=== PATIENT | female | born 1995 | race Two or more races ===

== ENCOUNTER 2019-12-03 18:11 | Emergency (ER) | payer SELFPAY ==
[~2019-12-03] VITALS: Ht 160 cm; Wt 53.5 kg
[2019-12-03 18:11] VITALS: BP 120/72
--- NOTE | 2019-12-03 18:24 | NUR ---
ED Nurse Note: Brought in by EMS from retirement for medical clearance; patient c/o vaginal pain
--- NOTE | 2019-12-03 19:17 | Emergency Room Report ---
History of Present Illness General Chief Complaint: Medical Clearance Source: EMS Present Illness HPI 24-year-old female presents to the emergency department for medical clearance and is complaining of 8/10 in severity vaginal irritation/ burning x3 days. Patient reports she noticed some thick white discharge with dysuria. Patient reports some burning in the genital area. She also states that she saw a lesion that looked like a pimple to the right labia 3 days ago, it progressed in size. Patient also states that it has since ruptured and had purulent discharge. She denies bleeding. She reports recent unprotected intercourse. She denies swollen tender lymph nodes She is suspicious for STI. She denies recent antibiotic use and she denies . She reports her menstrual cycle was 1 week ago. She denies nausea vomiting fevers or chills. She denies urinary frequency or urgency. She denies hx of genital lesions in the past. She reports slight itchy sensation. She denies abdominal pain or tenderness. She reports dysuria but denies frequency, urgency or hematuria. Allergies: Coded Allergies: No Known Allergies (Unverified , 12/03/19) Patient History Past Medical History: see triage record Past Surgical History: none Pertinent Family History: none Last Menstrual Period: a week ago Reviewed Nursing Documentation: PMH: Agreed; PSxH: Agreed Nursing Documentation-PMH Past Medical History: No Stated History Review of Systems All Other Systems: negative except mentioned in HPI Physical Exam Vital Signs Date Time Temp Pulse Resp B/P (MAP) Pulse Ox O2 Delivery O2 Flow Rate FiO2 12/03/19 18:06 98.4 80 15 120/72 (88) 99 Room Air Sp02 EP Interpretation: reviewed, normal General Appearance: no apparent distress, alert, GCS 15, non-toxic Head: normocephalic, atraumatic Eyes: bilateral eye normal inspection, bilateral eye PERRL ENT: hearing grossly normal, normal voice Neck: full range of motion Respiratory: lungs clear, normal breath sounds, speaking full sentences Cardiovascular #1: regular rate, rhythm Gastrointestinal: non tender, soft, non-distended, no guarding Rectal: deferred Genitourinary: normal inspection, no CVA tenderness, cervix normal - no CMT, other - Thick white vaginal D/C, no strawberry cervix. There is an external genital lesion on the outter portion of the right labia that is ulcerated/ raised and well circumscribed but not symmetrical , no pustules noted at this time no vesicles noted at this time, no blisters noted, no lymphadenopathy Musculoskeletal: back normal, normal range of motion, gait/station normal, non- tender Neurologic: alert, motor strength/tone normal, oriented x3, sensory intact, responsive, speech normal Psychiatric: judgement/insight normal Skin: other - There is an external genital lesion on the outter portion of the right labia that is ulcerated/raised and well circumscribed but not symmetrical , no pustules noted at this time no vesicles noted at this time, no blisters noted, no lymphadenopathy Lymphatic: no adenopathy Medical Decision Making PA Attestation Dr. Gutierrez Is my supervising Physician whom patient management has been discussed with. Diagnostic Impression: Primary Impression: Vaginitis Qualified Codes: N76.0 - Acute vaginitis Additional Impression: Vaginal lesion ER Course 24-year-old female presents to the emergency department for medical clearance and is complaining of 8/10 in severity vaginal irritation/ burning x3 days. Patient reports she noticed some thick white discharge with dysuria. Patient reports some burning in the genital area. She also states that she saw a lesion that looked like a pimple to the right labia 3 days ago, it progressed in size. Patient also states that it has since ruptured and had purulent discharge. She denies bleeding. She reports recent unprotected intercourse. She denies swollen tender lymph nodes She is suspicious for STI. She denies recent antibiotic use and she denies . She reports her menstrual cycle was 1 week ago. She denies nausea vomiting fevers or chills. She denies urinary frequency or urgency. She denies hx of genital lesions in the past. She reports slight itchy sensation. She denies abdominal pain or tenderness. She reports dysuria but denies frequency, urgency or hematuria. Ddx considered but are not limited to UTi , Pyelo, STI, Stone, Cystitis, vaginal laceration, vaginitis, LGV, Chancroid, Syphilis Vital signs: are WNL, pt. is afebrile H& PE are most consistent with: Vaginitis -- yeast suspected due to consistency of d/c. Lesions suspicious for gonorrhea lesion vs. syphillis, vs H. ducreyi ORDERS: -Urine Hcg: Negative - UA labs are attached :Moderate bacteria , and elevated inflammatory markers indicating UTI - Wet Mount : Moderate bacteria Given the myriad of symptoms representing several possible venereal diseases Pt. will be Treated for these clinically. ED INTERVENTIONS: -Diflucan PO -Rocephin IM -Bicillin LA 2.5 units IM -Azithromycin 1g PO -I do not identify an emergent condition at this time. With current presentation , pt. is stable for close outpatient follow up and conservative treatment. D/ w pt. to return promptly to ED with worsening or new symptoms.- Pt. verbalizes' understanding and agreement with proposed treatment plan. DISCHARGE: At this time pt. is stable for d/c to law enforcement. Will provide printed patient care instructions, and any necessary prescriptions. Care plan and follow up instructions have been discussed with the patient prior to discharge. discussed with the patient prior to discharge. Labs Test 12/03/19 18:50 Urine Color Yellow Urine Appearance Very cloudy Urine pH 5 (4.5-8.0) Urine Specific [place] 1.025 (1.005-1.035) Urine Protein 1+ (NEGATIVE) Urine Glucose (UA) Negative (NEGATIVE) Urine Ketones 4+ (NEGATIVE) Urine Blood 3+ (NEGATIVE) Urine Nitrite Negative (NEGATIVE) Urine Bilirubin Negative (NEGATIVE) Urine Urobilinogen Normal MG/DL (0.0-1.0) Urine Leukocyte Esterase 2+ (NEGATIVE) Urine RBC 10-15 /HPF (0 - 2) Urine WBC 15-20 /HPF (0 - 2) Urine Squamous Epithelial Cells Many /LPF (NONE/OCC) Urine Bacteria Many /HPF (NONE) Urine HCG, Qualitative Negative (NEGATIVE) Last Vital Signs Date Time Temp Pulse Resp B/P (MAP) Pulse Ox O2 Delivery O2 Flow Rate FiO2 12/03/19 18:11 98.4 80 15 120/72 99 Room Air Disposition: HOME, SELF-CARE Condition: Stable Scripts Fluconazole (FLUCONAZOLE) 100 Mg Tablet 100 MG ORAL ONCE, #1 TAB 0 Refills Prov: Charito Moon 12/03/19 Cephalexin* (KEFLEX*) 500 Mg Capsule 500 MG ORAL EVERY 12 HOURS for 7 Days, #14 CAP 0 Refills Prov: Charito Moon 12/03/19 Departure Forms: Care Home Clearance Patient Instructions: Sexually Transmitted Disease, [id number], Urinary Tract Infection, [id number] Additional Instructions: Take medications as directed. Follow up with a Primary Care Provider in 5 days, even if your symptoms have resolved. Return sooner to ED if new symptoms occur, or current symptoms become worse. - Please note that this Emergency Department Report was dictated using [email or web address] benefits [employer] technology software, occasionally this can lead to erroneous entry secondary to interpretation by the dictation equipment. Charito Moon Dec 03, 2019 19:17
[2019-12-03 19:21] LABS: APPEARANCE,URINE VERY CLOUDY; BILIRUBIN, URINE NEGATIVE (NEGATIVE); GLUCOSE, URINE (UA) NEGATIVE (NEGATIVE); KETONES,URINE 4+ (NEGATIVE); LEUKOCYTE ESTERASE ,URINE 2+ (NEGATIVE); NITRITE,URINE NEGATIVE (NEGATIVE); PH,URINE 5 (4.5-8.0); PROTEIN,URINE 1+ (NEGATIVE); UROBILINOGEN,URINE NORMAL MG/DL (0.0-1.0)
--- NOTE | 2019-12-03 19:26 | NUR ---
HAND-OFF: Report given to trang reddy.
--- NOTE | 2019-12-03 19:30 | NUR ---
ED Nurse Note: urine and wet mount sample sent
[2019-12-03 19:32] LABS: COLOR,URINE YELLOW
[2019-12-03] MEDS ORDERED: CEPHALEXIN500 MG ORAL (19:58)
[2019-12-03] MEDS ORDERED: FLUCONAZOLE100 MG ORAL (19:59)
[2019-12-03] MEDS ORDERED: Fluconazole 100mg tab ORAL ONE (20:00)
[2019-12-03] MEDS ORDERED: Bicillin LA 2.4MMU/4ML SYR IM ONE (20:00)
[2019-12-03] MEDS ORDERED: Azithromycin 250mg tab ORAL ONE (20:00)
[2019-12-03] MEDS ORDERED: Lidocaine 1% MPF 10mg/ml 5ml INJ ONE (20:00)
[2019-12-03 20:21] VITALS: BP 124/72
--- NOTE | 2019-12-03 20:21 | NUR ---
ER DISCHARGE NOTE: Patient is cleared to be discharged per ERMD, pt is aox4, on room air, with stable vital signs. pt was given dc and prescription instructions, pt was able to verbalize understanding, pt id band removed without complications. pt is able to ambulate with steady gait. pt took all belongings and left with [employer] Addendum: 12/03/19 at 2209 by ÁLVARO ER DISCHARGE NOTE: Patient is cleared to be discharged per ERMD, pt is aox4, on room air, with stable vital signs. pt was given dc and prescription instructions, pt was able to verbalize understanding. pt is able to ambulate with steady gait. pt then took all belongings and ran away from [employer]
== END 2019-12-03 20:21 | disposition home or self-care (01) ==
LOC: EDBD 18:11 → EMR 18:15
DX: N76.0 Acute vaginitis (principal); N89.8 Other specified noninflammatory disorders of vagina
CPT/HCPCS: 81001; 81025; 87086; 87181; 87210; 96372; 96374; 99284; J0696